=== PATIENT | female | born 1985 | race Caucasian/White ===

== ENCOUNTER 2021-01-07 22:53 | Inpatient (IN) | payer OTHER ==
[2021-01-08 00:04] LABS: BASO % 0.9 % (0-2.0); EOS % 1.1 % (0-4.5); HEMATOCRIT 37.8 % (32.4-45.2); HEMOGLOBIN 12.3 GM/dL (10.7-15.3); LYMPH % 29.2 % (8-40); MCH 25.1 pg (25.7-33.7); MCHC 32.6 g/dl (32.0-36.0); MONO % 8.7 % (3.8-10.2); NEUT % 60.1 % (42.8-82.8); RDW 22.1 % (11.6-15.6); WHITE BLOOD COUNT 4.5 K/mm3 (4.0-10.0)
[2021-01-08 00:12] LABS: INR 1.03 (0.83-1.09); PROTHROMBIN TIME (PATIENT) 12.6 SEC (9.7-13.0)
[2021-01-08 00:14] LABS: ACTIVATED PTT 27.4 SECONDS (25.2-36.5)
[2021-01-08 00:15] LABS: CHLORIDE 110 mmol/L (98-107); POTASSIUM 3.6 mmol/L (3.5-5.1); SODIUM 142 mmol/L (136-145)
[2021-01-08 00:17] LABS: ALBUMIN 3.8 g/dl (3.4-5.0); ANION GAP 7 MMOL/L (8-16); BLOOD UREA NITROGEN 14.8 mg/dL (7-18); CALCIUM 8.7 mg/dL (8.5-10.1); CO2 26 mmol/L (21-32)
[2021-01-08 00:18] LABS: GLUCOSE,RANDOM 94 mg/dL (74-106)
[2021-01-08 00:20] LABS: SGOT/AST 21 U/L (15-37); SGPT/ALT 24 U/L (13-61)
[2021-01-08 00:21] LABS: CREATININE 0.6 mg/dL (0.55-1.3); LDH 189 U/L (84-246)
[2021-01-08 00:22] LABS: BILIRUBIN,TOTAL 0.2 mg/dL (0.2-1); TOT PROT 7.3 g/dl (6.4-8.2)
[2021-01-08 00:23] LABS: ALK PHOS 66 U/L (45-117)
[2021-01-08 00:38] LABS: VENOUS BASE EXCESS -3.9 mmol/L (-2-2); VENOUS O2 SATURATION 72.2 % (70-80); VENOUS PCO2 41.1 mmHg (38-52); VENOUS PH 7.339 (7.310-7.410)
[2021-01-08 00:43] LABS: ANISOCYTOSIS 1+; MACROCYTOSIS 0; OVALOCYTE 1+; PLATELET ESTIMATE NORMAL
[2021-01-08 01:00] LABS: MEAN PLT VOLUME 10.6 fl (7.5-11.1); PLATELET COUNT 194 K/MM3 (134-434)
[2021-01-08] MEDS ORDERED: ACETAMINOPHEN 1000 MG/100 ML VIAL (NON FORMULARY) IVPB ONE (01:24)
[2021-01-08] MEDS ORDERED: ACETAMINOPHEN INJECTION 100 ML IVPB ONE (01:28)
[2021-01-08] MEDS ORDERED: DEXAMETHASONE SOD PHOSPHATE 20 MG/5 ML VIAL IVPB ONE (02:39)
[2021-01-08] MEDS ORDERED: DEXAMETHASONE SOD PHOSPHATE 10 MG/1 ML VIAL ONE ×2 (02:41→10:48)
[2021-01-08] MEDS ORDERED: ALBUTEROL SO4 HFA INHALER IH PRN (05:28)
[2021-01-08 10:18] LABS: BASO % 0.2 % (0-2.0); HEMATOCRIT 38.4 % (32.4-45.2); HEMOGLOBIN 12.6 GM/dL (10.7-15.3); LYMPH % 16.4 % (8-40); MCH 25.2 pg (25.7-33.7); MCHC 32.8 g/dl (32.0-36.0); MEAN CELL VOLUME 76.9 fl (80-96); MEAN PLT VOLUME 10.8 fl (7.5-11.1); MONO % 2.7 % (3.8-10.2); NEUT % 80.7 % (42.8-82.8); PLATELET COUNT 194 K/MM3 (134-434); RBC 4.99 M/mm3 (3.60-5.2); RDW 21.5 % (11.6-15.6); WHITE BLOOD COUNT 2.9 K/mm3 (4.0-10.0)
[2021-01-08 10:38] LABS: CALCIUM 9.4 mg/dL (8.5-10.1)
[2021-01-08 10:39] LABS: BLOOD UREA NITROGEN 11.7 mg/dL (7-18)
[2021-01-08 10:42] LABS: CREATININE 0.7 mg/dL (0.55-1.3)
[2021-01-08 10:48] LABS: POTASSIUM 4.3 mmol/L (3.5-5.1)
[2021-01-08] MEDS ORDERED: ZINC SULFATE 220 MG CAPSULE (FP) ONE (10:48)
[2021-01-08] MEDS ORDERED: ASCORBIC ACID 500 MG TABLET (FP) ONE (10:48)
[2021-01-08] MEDS ORDERED: FAMOTIDINE 20 MG TABLET ONE (10:48)
[2021-01-08] MEDS ORDERED: ENOXAPARIN NA (PORCINE) 40 MG/0.4 ML DISP.SYRIN SQ ONE (10:49)
[2021-01-08] MEDS: ENOXAPARIN NA (PORCINE) 40 MG/0.4 ML DISP.SYRIN SQ SCH (10:51)
[2021-01-08] MEDS: DEXAMETHASONE SOD PHOSPHATE 4 MG/1 ML VIAL IVPB SCH (10:51)
[2021-01-08] MEDS: CHOLECALCIFEROL (VIT D3) 400 UNIT (10 MCG) TABLET PO SCH (10:52)
[2021-01-08] MEDS: ZINC SULFATE 220 MG CAPSULE (FP) PO SCH (10:52)
[2021-01-08] MEDS: ASCORBIC ACID 500 MG TABLET (FP) PO SCH (10:52)
[2021-01-08] MEDS: FAMOTIDINE 20 MG TABLET PO SCH ×2 (10:52→22:44)
[2021-01-08 11:03] LABS: URINE APPEARANCE Clear; URINE BILIRUBIN Negative (NEGATIVE); URINE COLOR Yellow; URINE GLUCOSE (UA) Negative (NEGATIVE); URINE KETONE Negative (NEGATIVE); URINE LEUK ESTERASE Negative (NEGATIVE); URINE NITRITE Negative (NEGATIVE); URINE PROTEIN Trace (NEGATIVE); URINE UROBILINOGEN 0.2 mg/dL (0.2-1.0)
[2021-01-08] MEDS ORDERED: ACETAMINOPHEN 325 MG TABLET (FP) ONE (12:17)
[2021-01-08] MEDS ORDERED: ACETAMINOPHEN 325 MG TABLET (FP) PO PRN (13:06)
[2021-01-08 13:23] LABS: EPI CELLS 65 /uL (0-25.1); HYALINE CASTS 4 /uL (0-3.1); URINE BACTERIA 1136 /uL (0-1359); URINE RBC 32 /uL (0-23.9); URINE WBC 58 /uL (0-25.8)
[2021-01-08 23:57] VITALS: BMI 37.5
[2021-01-09 09:44] LABS: BASO % 0.4 % (0-2.0); EOS % 0.5 % (0-4.5); HEMATOCRIT 37.7 % (32.4-45.2); HEMOGLOBIN 12.6 GM/dL (10.7-15.3); LYMPH % 31.7 % (8-40); MCH 25.7 pg (25.7-33.7); MCHC 33.5 g/dl (32.0-36.0); MEAN CELL VOLUME 76.9 fl (80-96); MEAN PLT VOLUME 9.9 fl (7.5-11.1); MONO % 6.9 % (3.8-10.2); NEUT % 60.5 % (42.8-82.8); PLATELET COUNT 208 K/MM3 (134-434); RBC 4.91 M/mm3 (3.60-5.2); RDW 21.5 % (11.6-15.6); WHITE BLOOD COUNT 4.7 K/mm3 (4.0-10.0)
[2021-01-09] MEDS: ZINC SULFATE 220 MG CAPSULE (FP) PO SCH (10:26)
[2021-01-09] MEDS: ASCORBIC ACID 500 MG TABLET (FP) PO SCH (10:26)
[2021-01-09] MEDS: DEXAMETHASONE SOD PHOSPHATE 4 MG/1 ML VIAL IVPB SCH (10:26)
[2021-01-09] MEDS: FAMOTIDINE 20 MG TABLET PO SCH (10:26)
[2021-01-09] MEDS: ENOXAPARIN NA (PORCINE) 40 MG/0.4 ML DISP.SYRIN SQ SCH (10:26)
[2021-01-09] MEDS: CHOLECALCIFEROL (VIT D3) 400 UNIT (10 MCG) TABLET PO SCH (10:28)
[2021-01-09 11:12] LABS: CHLORIDE 107 mmol/L (98-107); POTASSIUM 3.5 mmol/L (3.5-5.1); SODIUM 139 mmol/L (136-145)
[2021-01-09 11:14] LABS: CALCIUM 8.9 mg/dL (8.5-10.1)
[2021-01-09 11:15] LABS: ALBUMIN 3.8 g/dl (3.4-5.0); ANION GAP 6 MMOL/L (8-16); BLOOD UREA NITROGEN 12.3 mg/dL (7-18); CO2 26 mmol/L (21-32); GLUCOSE,RANDOM 92 mg/dL (74-106)
[2021-01-09 11:18] LABS: CREATININE 0.8 mg/dL (0.55-1.3); SGOT/AST 18 U/L (15-37); SGPT/ALT 24 U/L (13-61)
[2021-01-09 11:19] LABS: BILIRUBIN,TOTAL 0.4 mg/dL (0.2-1); TOT PROT 7.2 g/dl (6.4-8.2)
[2021-01-09 11:21] LABS: ALK PHOS 65 U/L (45-117)
[2021-01-09 12:00] LABS: LDH 164 U/L (84-246)
[2021-01-09 17:01] VITALS: BP 110/70; PULSE 78; TEMP 98.1
== END 2021-01-09 17:35 | disposition home or self-care (01) | DRG 137 ==
LOC: JER 22:53 → JERBED 01-08 04:12 → J6WEST-2 01-08 19:52
PROVIDERS: ADMIT Internal Medicine; ATTEND Internal Medicine
DX: U07.1 COVID-19 (principal); J12.82 Pneumonia due to coronavirus disease 2019; E66.9 Obesity, unspecified; Z68.37 Body mass index [BMI] 37.0-37.9, adult; J45.909 Unspecified asthma, uncomplicated
CPT/HCPCS: 36415; 71045-TC-FY; 71275-TC; 80048; 80053; 81003; 82550; 82728; 82803; 83605; 83615; 84484; 84703; 85025; 85379; 85610; 85730; 86140; 86769; 87040; 87086; 87804; 93005; 93010; 94761; 99285-25; C9803; J0131; Q9967; U0003; U0005

== ENCOUNTER 2022-01-12 16:50 | Emergency (ER) | payer OTHER ==
[2022-01-12 17:19] VITALS: BP 126/84; PULSE 55; TEMP 97.9; BMI 35.0
[2022-01-12] MEDS ORDERED: KETOROLAC TROMETHAMINE 60 MG/2 ML VIAL IM ONE (18:00)
[2022-01-12] MEDS ORDERED: KETOROLAC TROMETHAMINE 60 MG/2 ML VIAL ONE (18:19)
[2022-01-12 19:19] LABS: HCG,QUALITATIVE URINE Negative
[2022-01-12 19:24] LABS: EPI CELLS 13 /uL (0-25.1); HYALINE CASTS 1 /uL (0-3.1); URINE APPEARANCE CLOUDY; URINE BACTERIA 98 /uL (0-1359); URINE BILIRUBIN NEGATIVE (NEGATIVE); URINE COLOR ORANGE; URINE GLUCOSE (UA) NEGATIVE (NEGATIVE); URINE KETONE NEGATIVE (NEGATIVE); URINE LEUK ESTERASE 2+ (NEGATIVE); URINE NITRITE NEGATIVE (NEGATIVE); URINE PROTEIN 2+ (NEGATIVE); URINE WBC 603 /uL (0-25.8)
[2022-01-12 20:51] LABS: YEAST NEGATIVE (NEGATIVE)
== END 2022-01-12 20:09 | disposition home or self-care (01) ==
LOC: JER 16:50
PROC: 3E0233Z Introduction of Anti-inflammatory into Muscle, Percutaneous Approach (ICD-10-PCS; principal; 2022-01-12)
DX: R10.2 Pelvic and perineal pain (principal)
CPT/HCPCS: 36415; 76830-TC; 81003; 84703; 87086; 87491; 87591; 96372; 99284-25

== ENCOUNTER 2022-09-20 08:06 | Emergency (ER) | payer OTHER ==
[2022-09-20 08:28] VITALS: BP 121/73; PULSE 84; RESP 16; TEMP 98.4; BMI 37.2
== END 2022-09-20 10:00 | disposition home or self-care (01) ==
LOC: JER 08:06
DX: J06.9 Acute upper respiratory infection, unspecified (principal)
CPT/HCPCS: 0241U-QW; 99283-25

== ENCOUNTER 2022-10-19 07:57 | Emergency (ER) | payer OTHER ==
[2022-10-19 08:06] VITALS: BP 126/80; PULSE 77; RESP 18; TEMP 97.8; BMI 36.3
[2022-10-19] MEDS ORDERED: KETOROLAC TROMETHAMINE 30 MG/1 ML VIAL IM ONE (09:02)
[2022-10-19] MEDS ORDERED: KETOROLAC TROMETHAMINE 30 MG/1 ML VIAL ONE (09:06)
== END 2022-10-19 09:20 | disposition home or self-care (01) ==
LOC: JER 07:57 → JERFT 07:57
PROC: 3E023GC Introduction of Other Therapeutic Substance into Muscle, Percutaneous Approach (ICD-10-PCS; principal; 2022-10-19)
DX: G44.89 Other headache syndrome (principal); M54.2 Cervicalgia; M54.50 Low back pain, unspecified; V49.9XXA Car occupant (driver) (passenger) injured in unspecified traffic accident, initial encounter
CPT/HCPCS: 99284-25

== ENCOUNTER 2022-11-02 17:55 | Emergency (ER) | payer OTHER ==
[2022-11-02 19:01] VITALS: BP 121/80; PULSE 74; RESP 18; TEMP 98.1; BMI 37.2
[2022-11-02] MEDS ORDERED: PANTOPRAZOLE 40 MG TABLET PO ONE ×2 (21:27→22:09)
== END 2022-11-02 23:40 | disposition home or self-care (01) ==
LOC: JER 17:55
DX: R09.89 Other specified symptoms and signs involving the circulatory and respiratory systems (principal)
CPT/HCPCS: 0241U-QW; 70360-TC-FY; 71046-TC-FY; 87651; 99284-25

== ENCOUNTER 2024-07-18 14:06 | Observation (INO) | payer OTHER ==
[2024-07-18] MEDS ORDERED: methylPREDNISolone NA SUCC 125 MG/2 ML VIAL ONE (14:25)
[2024-07-18] MEDS ORDERED: FAMOTIDINE 20 MG/50 ML IVPB 20 MG/50 ML MG IVPB ONE (14:25)
[2024-07-18] MEDS: FAMOTIDINE 20 MG/50 ML IVPB 20 MG/50 ML MG IVPB ONE (14:49)
[2024-07-18] MEDS: methylPREDNISolone NA SUCC 125 MG/2 ML VIAL IVPB ONE (14:49)
[2024-07-18] MEDS ORDERED: EPINEPHrine/PF 1 MG/1 ML (1:1,000) AMPULE ONE ×2 (15:14→17:14)
[2024-07-18] MEDS: EPINEPHrine 1:1,000 0.3 MG/0.3 ML SYR IM ONE ×2 (15:20→17:19)
[2024-07-18 16:51] LABS: HIV INTERPRETATION NEGATIVE (NEGATIVE)
[2024-07-18] MEDS: ALBUTEROL SO4 0.083% IH SOL 2.5 MG/3 ML VIAL.NEB. NEB ONE (18:28)
[2024-07-18] MEDS ORDERED: ALBUTEROL SO4 0.083% IH SOL 2.5 MG/3 ML VIAL.NEB. NEB ONE (18:28)
[2024-07-18 18:32] LABS: BASO % 0.6 % (0-2.0); EOS % 0.1 % (0-4.5); HEMATOCRIT 33.7 % (32.4-45.2); HEMOGLOBIN 10.7 GM/dL (10.7-15.3); LYMPH % 6.1 % (8-40); MCH 22.1 pg (25.7-33.7); MCHC 31.7 g/dl (32.0-36.0); MEAN CELL VOLUME 69.7 fl (80-96); MEAN PLT VOLUME 7.6 fl (7.5-11.1); MONO % 0.6 % (3.8-10.2); NEUT % 92.6 % (42.8-82.8); PLATELET COUNT 438 10^3/uL (134-434); RBC 4.84 M/mm3 (3.60-5.2); RDW 19.9 % (11.6-15.6); WHITE BLOOD COUNT 7.6 K/mm3 (4.0-10.0)
[2024-07-18 18:51] LABS: POTASSIUM 3.5 mmol/L (3.5-5.1)
[2024-07-18 18:54] LABS: ALBUMIN 3.9 g/dl (3.4-5.0); CALCIUM 9.2 mg/dL (8.5-10.1)
[2024-07-18 18:55] LABS: BLOOD UREA NITROGEN 11.4 mg/dL (7-18)
[2024-07-18 18:56] LABS: ANISOCYTOSIS 3+; MACROCYTOSIS 0; OVALOCYTE 1+
[2024-07-18 18:58] LABS: CREATININE 0.9 mg/dL (0.55-1.3)
[2024-07-18 18:59] LABS: BILIRUBIN,TOTAL 0.7 mg/dL (0.2-1); TOT PROT 7.7 g/dl (6.4-8.2)
[2024-07-18] MEDS: ALBUTEROL SO4 2.5/IPRATROPIUM 0.5 INH SOL 3 ML VIAL.NEB. NEB SCH (20:41)
[2024-07-18] MEDS: DEXAMETHASONE SOD PHOSPHATE 10 MG/1 ML VIAL IVPUSH SCH (22:34)
[2024-07-18] MEDS: ACETAMINOPHEN 1000 MG/100 ML BAG IVPB ONE (23:23)
[2024-07-19 01:20] VITALS: BMI 36.6
[2024-07-19] MEDS ORDERED: ACETAMINOPHEN 325 MG TABLET (FP) PO PRN (06:00)
[2024-07-19 06:14] VITALS: RESP 18
[2024-07-19] MEDS: KETOROLAC TROMETHAMINE 30 MG/1 ML VIAL IVPUSH PRN (08:02)
[2024-07-19 08:24] LABS: POTASSIUM 3.7 mmol/L (3.5-5.1)
[2024-07-19 08:25] LABS: HEMATOCRIT 32.8 % (32.4-45.2); HEMOGLOBIN 10.4 GM/dL (10.7-15.3); MCH 22.3 pg (25.7-33.7); MCHC 31.6 g/dl (32.0-36.0); MEAN CELL VOLUME 70.6 fl (80-96); MEAN PLT VOLUME 8.2 fl (7.5-11.1); PLATELET COUNT 450 10^3/uL (134-434); RBC 4.65 M/mm3 (3.60-5.2); RDW 19.3 % (11.6-15.6); WHITE BLOOD COUNT 11.1 K/mm3 (4.0-10.0)
[2024-07-19 08:26] LABS: CALCIUM 9.7 mg/dL (8.5-10.1)
[2024-07-19 08:27] LABS: BLOOD UREA NITROGEN 7.2 mg/dL (7-18); MAGNESIUM 2.1 mg/dL (1.8-2.4)
[2024-07-19 08:31] LABS: CREATININE 0.9 mg/dL (0.55-1.3); PHOSPHOROUS 4.3 mg/dL (2.5-4.9)
[2024-07-19] MEDS: ENOXAPARIN NA (PORCINE) 40 MG/0.4 ML DISP.SYRIN SQ SCH (09:38)
[2024-07-19 13:54] VITALS: BP 125/76; PULSE 83; TEMP 98.8
== END 2024-07-19 13:58 | disposition home or self-care (01) ==
LOC: JER 14:06 → INTOOBSV 17:12 → UNDOADMOB 17:12 → JERBED 17:12 → J4S 19:15 → JERBED 19:15
PROVIDERS: ADMIT Internal Medicine; ATTEND Internal Medicine
PROC: 3E0F7GC Introduction of Other Therapeutic Substance into Respiratory Tract, Via Natural or Artificial Opening (ICD-10-PCS; principal; 2024-07-18)
PROC: 3E033NZ Introduction of Analgesics, Hypnotics, Sedatives into Peripheral Vein, Percutaneous Approach (ICD-10-PCS; 2024-07-18)
PROC: 3E033GC Introduction of Other Therapeutic Substance into Peripheral Vein, Percutaneous Approach (ICD-10-PCS; 2024-07-18)
PROC: 3E023GC Introduction of Other Therapeutic Substance into Muscle, Percutaneous Approach (ICD-10-PCS; 2024-07-18)
PROC: 3E0333Z Introduction of Anti-inflammatory into Peripheral Vein, Percutaneous Approach (ICD-10-PCS; 2024-07-18)
DX: T78.05XA Anaphylactic reaction due to tree nuts and seeds, initial encounter (principal); J45.909 Unspecified asthma, uncomplicated; Z98.84 Bariatric surgery status; L40.0 Psoriasis vulgaris; G43.909 Migraine, unspecified, not intractable, without status migrainosus; Z86.718 Personal history of other venous thrombosis and embolism; X58.XXXA Exposure to other specified factors, initial encounter; Z91.018 Allergy to other foods
CPT/HCPCS: 36415; 71045-TC-FY; 80048; 80053; 83036; 83735; 84100; 84443; 84703; 85025; 85027; 86803; 87389; 93005; 93010; 94640; 99285-25; G0378; J0131; J0171; J1100